=== PATIENT | female | born 1960 | race American Indian/Alaskan Native ===

== ENCOUNTER 2019-11-20 09:21 | Day surgery (SDC) | payer MEDICARE ==
[~2019-11-20 09:21] MED LIST: MIDAZOLAM 2 MG/2 ML INJ IV NR; SODIUM CHLORIDE 0.9% 1000 ML 1,000 ML IV SCH; ceFAZolin/Water 2 GM/20 ML 2 GM/20 ML SYRINGE IV NR
--- NOTE | 2019-11-20 10:44 | Anesthesia Day of Surgery ---
Anesthesia Day of Surgery - Day of Surgery Patient Examined: Yes Patient H&P Reviewed: Yes Patient is NPO: Yes
--- NOTE | 2019-11-20 10:44 | Anesthesia Consultation ---
Anesthesia Consult and Med Hx Date of service: 11/20/19 - Airway Anesthetic Teeth Evaluation: Poor ROM Head & Neck: Adequate Mental/Hyoid Distance: Adequate Mallampati Class: Class III Intubation Access Assessment: Possibly Difficult (uncuffed trach in place) - Pulmonary Exam CTA: Yes - Cardiac Exam Cardiac Exam: RRR - Pre-Operative Health Status ASA Pre-Surgery Classification: ASA3 Proposed Anesthetic Plan: MAC Nerve Block: supraclavicular - Pulmonary Hx Smoking: Yes (quit 1.5yrs ago) SOB: Yes (chronic; uses symbicort) Home Oxygen Therapy: No - Cardiovascular System Hx Hypertension: Yes Hx Heart Attack/AMI: No Hx Percutaneous Transluminal Coronary Angioplasty (PTCA): No Hx Cardia Arrhythmia: No Hx Peripheral Vascular Disease: Yes (took eliquis today) - Central Nervous System CVA: No Hx Psychiatric Problems: Yes (anxiety/depression/bipolar) - Gastrointestinal Hx Gastroesophageal Reflux Disease: Yes - Endocrine Hx End Stage Renal Disease: Yes (last HD 11/19/2019) Hx Liver Disease: No Hx Insulin Dependent Diabetes: Yes Hx Hypothyroidism: Yes - Other Systems Hx Obesity: No - Additional Comments Anesthesia Medical History Comments: No hx anesthetic complications.
[2019-11-20] MEDS ORDERED: BUPIVACAINE-EPINEPHRINE/PF 0.25%-1:200,000 (30 ML) VIAL INFILTRATI ONE (10:53)
[2019-11-20] MEDS ORDERED: ONDANSETRON 4 MG/2 ML INJ ONE (11:00)
[2019-11-20] MEDS ORDERED: HYDROmorphone 1 MG/1 ML INJ ONE (11:00)
[2019-11-20] MEDS ORDERED: propofoL 200 MG/20 ML VIAL IV ONE ×2 (11:00→14:26)
[2019-11-20] MEDS ORDERED: LIDOCAINE MPF (2%) 20 MG/1 ML VIAL 5 ML ONE (11:02)
[2019-11-20 11:09] LABS: Hemoglobin 10.8 gm/dl (10.1-14.3); Mean Corpuscular HGB Conc 31 % (30-34); Mean Corpuscular Volume 76 fl (79-97); Platelet Count 518 K/mm3 (140-440); Red Blood Count 4.58 M/mm3 (3.65-5.03)
[2019-11-20 11:10] LABS: Red Cell Distribution Width 21.8 % (13.2-15.2)
[2019-11-20 11:19] LABS: Calcium 9.3 mg/dL (8.4-10.2)
[2019-11-20] MEDS ORDERED: BUPIVACAINE/PF (0.5%) 5 MG/1 ML 30 ML VIAL INFILTRATI ONE (11:45)
[2019-11-20] MEDS ORDERED: LIDOCAINE (1%) 10 MG/1 ML VIAL 20 ML MDV ONE (11:45)
[2019-11-20] MEDS ORDERED: HEPARIN 10,000 UNITS/10 ML VIAL ONE (11:46)
[2019-11-20] MEDS ORDERED: SODIUM CHLORIDE 0.9% 500 ML 500 ML ONE (11:46)
[2019-11-20] MEDS ORDERED: PROTAMINE SULFATE 50 MG/5 ML INJ ONE (11:50)
[2019-11-20] MEDS ORDERED: SODIUM CHLORIDE 0.9% 250ML 250 ML ONE (12:50)
[2019-11-20] MEDS ORDERED: rifAMPin 600 MG VIAL ONE (12:50)
[2019-11-20] MEDS ORDERED: LIDOCAINE (1%) 10 MG/1 ML VIAL 20 ML MDV INFILTRATI ONE (12:56)
[2019-11-20] MEDS ORDERED: rifAMPin 600 MG VIAL IV ONE (12:57)
[2019-11-20] MEDS ORDERED: SODIUM CHLORIDE 0.9% IRR 1,500 ML BOTTLE IR ONE (12:58)
[2019-11-20] MEDS ORDERED: KETAMINE/STERILE WATER 50 MG/ML SYRINGE ONE (13:00)
[2019-11-20] MEDS ORDERED: HEPARIN 10,000 UNITS/10 ML VIAL IR ONE (13:01)
[2019-11-20] MEDS ORDERED: SODIUM CHLORIDE 0.9% 500 ML IVPB IRRIGATION ONE (13:02)
--- NOTE | 2019-11-20 14:39 | Short Stay Summary ---
Short Stay Documentation Date of service: 11/20/19 Narrative H&P: See H&P - History H&P: obtained from office - Allergies and Medications Current Medications: Allergies No Known Allergies Allergy (Verified 11/11/19 10:21) Home Medications Medication Instructions Recorded Confirmed Last Taken Type Insulin Glargine [Lantus VIAL] 30 units SQ HS PRN 09/19/15 11/13/19 11/07/19 History 30 units Levothyroxine [Synthroid] 50 mcg PO QAM 09/19/15 11/13/19 11/12/19 History 50 mcg Apixaban [Eliquis] 5 mg PO DAILY 11/11/19 11/13/19 11/12/19 History 5 mg Atorvastatin (Nf) [Lipitor] 10 mg PO QHS 11/11/19 11/13/19 11/12/19 History 10 mg Clopidogrel [Plavix] 75 mg PO QDAY #90 tablet 11/11/19 11/13/19 11/12/19 Rx 75 mg Oxycodone HCl/Acetaminophen 1 each PO Q6HR PRN #30 tablet 11/11/19 11/13/19 11/12/19 Rx [Percocet 7.5/325 mg] 1 tab carvediloL [Coreg] 12.5 mg PO BID 11/11/19 11/13/19 11/11/19 History 12.5mg C-1000 1 cap PO DAILY 11/18/19 11/18/19 Unknown History Eye Drops drops OD 11/18/19 Unknown History Humalog 100 UNITS/ML Kwikpen 11/18/19 Unknown History Active Medications Cefazolin Sodium (Ancef/Sterile Water 2 Gm/20 Ml) 2 gm in 20 mls @ 80 mls/hr IV PREOP NR; Protocol Stop: 11/20/19 23:59 Sodium Chloride (Nacl 0.9% 1000 Ml) 1,000 mls @ 42 mls/hr IV DIRECT AZAEL Stop: 11/20/19 23:59 Midazolam HCl (Versed) 2 mg IV PREOP NR Stop: 11/20/19 23:59 - Brief post op/procedure progress note Date of procedure: 11/20/19 Pre-op diagnosis: Complications of Dialysis Access Post-op diagnosis: same Procedure: Revision of Left Brachial Artery to Axillary Vein Arteriovenous Graft with Pro ximal Mobilization with 6 mm Bovine Artegraft Anesthesia: MAC, regional Surgeon: XENIA CURRIE Estimated blood loss: 50-100ml Pathology: none Condition: stable - Disposition Condition at discharge: Good Disposition: DC/[place]-03 [facility] Short Stay Discharge Plan Activity: other (No heavy lifting with left arm. Okay to continue using left arm for dialysis access.) Wound: open to air, keep clean and dry, other (Okay to wash the wounds with soap and water but do not soak in water for 2 weeks.) Follow up with: XENIA CURRIE MD [Staff Physician] - 14 Days Prescriptions: Oxycodone HCl/Acetaminophen [Percocet 7.5/325 mg] 1 each PO Q6HR PRN #40 tablet PRN Reason: Pain
--- NOTE | 2019-11-20 14:40 | Operative Report ---
Operative Report Operative Report: Date of Procedure: 11/20/2019 Pre-operative Diagnosis: Complications of Dialysis Access Post-operative Diagnosis: Same Procedure(s): 1. Revision of Left Brachial Artery to Axillary Vein Arteriovenous Graft with Proximal Mobilization with 6 mm Bovine Artegraft Surgeon: Jayson Mckeon M.D. Medical Office Assistant Instructor: None Anesthesia: Regional/MAC EBL: 100 mL Counts: Correct Complications: None Condition: Stable Findings: Successful revision of left arm arteriovenous graft with palpable thrill in the graft and palpable radial pulse at the completion of the case. Specimen: None Indication: The patient is a 59-year-old female with a history of end-stage renal disease who is on hemodialysis through a left arm brachial artery to axillary vein arteriovenous graft. She has complaints of left hand numbness and inability to hot dip galvanizer objects. She had a diagnostic left upper extremity arteriogram performed there revealed angiographic evidence of steal syndrome. She is in need of revision of the graft to improve the flow to her hand. She was given the risk, benefits, and alternative procedures and consented to the procedure. Description of Procedure: Prior to being brought to the operating room the patient had a regional block of her left arm performed in the preoperative area. After this was performed the patient was transported to the operating room and was adequately sedated. After adequate sedation was achieved her left arm was prepped and draped in normal sterile fashion. A longitudinal incision was created on the medial aspect of the arm just proximal to the antecubital crease and carried down to the brachial artery anastomosis by sharp dissection. The brachial artery was dissected circumferentially both proximal and distal to the anastomosis and controlled with Vesseloops. I then made a longitudinal incision on the medial aspect of the arm to the axilla and carried this down to the axillary artery by sharp dissection. The axillary artery was dissected circumferentially and controlled with Vesseloops. I then used a 6 mm bovine Artegraft that was soaked in rifampin and tunneled it from the brachial artery incision to the axillary artery incision. I systemically heparinized the patient with 3000 units of heparin IV and then used angled DeBakey clamps to clamp the axillary artery. I made an arteriotomy using an 11 blade and Alvarez scissors and then created an end-to-side anastomosis between the bovine Artegraft using a 6-0 Prolene in running fashion. After creating the anastomosis I clamped the distal end of the graft and released the clamps on the axillary artery allowing flow into the graft. Hemostasis at the anastomosis was achieved with quick clot. I then used angled DeBakey clamps to clamp the brachial artery both proximal and distal to the anastomosis of the previous graft and then dissected the graft towards the venous outflow and clamped the graft. I transected the graft leaving approximately 1 cm of cuff on the brachial artery and then close the arteriotomy using the cuff as a patch with 6-0 Prolene in running fashion. Prior to completing the closure I flashed the inflow and outflow of the brachial artery and then completed the closure. Hemostasis on the arteriotomy closure was achieved with 6-0 Prolene in interrupted fashion. Once hemostasis was achieved I beveled the remaining end of the graft and then cut the 6 mm bovine graft to length and beveled that and and then created an end-to-end anastomosis between the bovine graft and the pre-existing graft using two 6-0 Prolene's in running fashion. Prior to completing the anastomosis I flashed both grafts and then reclamped them. I flushed the graft with heparinized saline and then completed the closure and released all clamps allowing flow into the graft which had a palpable thrill as well as a palpable pulse in the radial artery. Hemostasis within the brachial artery wound was achieved with quick clot and Anyi. Once hemostasis was achieved both wounds were closed in 2 layers using a 3-0 Vicryl in running fashion in the deep dermal layer and a 4-0 Monocryl in a running fashion the subcuticular layer and then dressed with Dermabond. The patient tolerated the procedure well. All sponge, needle, and instrument counts were correct. The patient was taken to the recovery area in stable condition.
[2019-11-20] MEDS: fentaNYL 100 MCG/2 ML INJ IV PRN ×2 (14:49→15:00)
[2019-11-20] MEDS ORDERED: fentaNYL 100 MCG/2 ML INJ ONE (14:49)
[2019-11-20] MEDS ORDERED: ONDANSETRON 4 MG/2 ML INJ IV PRN (15:26)
--- NOTE | 2019-11-20 15:57 | Post Anesthesia Evaluation ---
- Post Anesthesia Evaluation Patient Participated: Yes Airway Patent: Yes Stable Respiratory Function: Yes Nausea/Vomiting: No Temp > 96.8F: Yes Pain Manageable: Yes Adequeate Hydration: Yes Anesthesia Complications: No
[2019-11-20 17:48] VITALS: BP 168/87
== END 2019-11-20 17:09 ==
LOC: OR 09:21
PROVIDERS: ATTEND Surgery Vascular Surgery
DX: I12.0 Hypertensive chronic kidney disease with stage 5 chronic kidney disease or end stage renal disease (principal); E11.22 Type 2 diabetes mellitus with diabetic chronic kidney disease; N18.6 End stage renal disease; E11.51 Type 2 diabetes mellitus with diabetic peripheral angiopathy without gangrene; E11.39 Type 2 diabetes mellitus with other diabetic ophthalmic complication; E03.9 Hypothyroidism, unspecified; E78.00 Pure hypercholesterolemia, unspecified; K21.9 Gastro-esophageal reflux disease without esophagitis; F41.9 Anxiety disorder, unspecified; F31.9 Bipolar disorder, unspecified; M19.90 Unspecified osteoarthritis, unspecified site; H40.9 Unspecified glaucoma; Z90.710 Acquired absence of both cervix and uterus; Z99.2 Dependence on renal dialysis; Z79.899 Other long term (current) drug therapy; Z79.4 Long term (current) use of insulin; Z87.891 Personal history of nicotine dependence; Z80.0 Family history of malignant neoplasm of digestive organs; Z87.440 Personal history of urinary (tract) infections; Z98.890 Other specified postprocedural states; Z86.2 Personal history of diseases of the blood and blood-forming organs and certain disorders involving the immune mechanism
CPT/HCPCS: 36415; 36832; 80048; 82962; 85027; C1768; J0690; J1170; J1644; J2250; J2405; J2704; J3010; J3490; J7030; J7040; J7050; 64450; J2720

== ENCOUNTER 2019-12-08 11:23 | Day surgery (SDC) | payer MEDICARE ==
[2019-12-08] MEDS ORDERED: oxyCODONE /ACETAMINOPHEN 5-325MG TAB PO ONE (12:49)
[2019-12-08] MEDS ORDERED: MIDAZOLAM 2 MG/2 ML INJ ONE (14:01)
[2019-12-08] MEDS ORDERED: fentaNYL 100 MCG/2 ML INJ ONE (14:01)
[2019-12-08] MEDS ORDERED: LIDOCAINE (2%) 20 MG/1 ML VIAL 20 ML MDV INFILTRATI ONE (14:02)
[2019-12-08] MEDS ORDERED: SODIUM CHLORIDE 0.9% 250ML 250 ML ONE (14:02)
[2019-12-08] MEDS ORDERED: HEPARIN 10,000 UNITS/10 ML VIAL ONE (14:02)
[2019-12-08] MEDS ORDERED: HEPARIN/NS 5000 UNIT/500ML 1,000 ML IR ONE (14:02)
--- NOTE | 2019-12-08 14:32 | Short Stay Summary ---
Short Stay Documentation Date of service: 12/08/19 Narrative H&P: See Short Stay Record - Allergies and Medications Current Medications: Allergies No Known Allergies Allergy (Verified 11/11/19 10:21) Home Medications Medication Instructions Recorded Confirmed Last Taken Type Insulin Glargine [Lantus VIAL] 30 units SQ HS PRN 09/19/15 12/08/19 12/07/19 History 15 units Levothyroxine [Synthroid] 50 mcg PO QAM 09/19/15 12/08/19 12/07/19 History 50 mcg Apixaban [Eliquis] 5 mg PO DAILY 11/11/19 12/08/19 12/07/19 History 5 mg Atorvastatin (Nf) [Lipitor] 10 mg PO QHS 11/11/19 12/08/19 12/07/19 History 10 mg Clopidogrel [Plavix] 75 mg PO QDAY #90 tablet 11/11/19 12/08/19 12/07/19 Rx 75 mg carvediloL [Coreg] 12.5 mg PO BID 11/11/19 12/08/19 12/07/19 History 12.5mg C-1000 1 cap PO DAILY 11/18/19 12/08/19 12/07/19 History 1 Eye Drops 1 drops OD DAILY 11/18/19 12/08/19 12/07/19 History 1 Humalog 100 UNITS/ML Kwikpen 7 units SC DAILY PRN 11/18/19 12/08/19 12/04/19 History 7 Oxycodone HCl/Acetaminophen 1 each PO Q6HR PRN #40 tablet 11/20/19 12/08/19 12/07/19 Rx [Percocet 7.5/325 mg] 1 - Brief post op/procedure progress note Date of procedure: 12/08/19 Pre-op diagnosis: Complications of Dialysis Access Post-op diagnosis: same Procedure: 1. Access Left Arm AV Graft with 7 [place] Sheath Venous 2. Diagnostic Fistulogram with Central Venogram 3. Access Left Arm AV Graft with 7 [place]istan[place] Sheath Arterial 4. Catheter in Left Axillary Artery 5. Diagnostic Left Upper Extremity Arteriogram 6. Angioplasty of Left Axillary Artery with 7 x 80 IN.PACT Drug-Coated Balloon 7. Monitored Moderate Sedation (Total Anesthesia Time: 33 Minutes) 8. Radiologic Supervision with Interpretation Anesthesia: local, other (Monitored Moderate Sedation) Surgeon: XENIA CURRIE Estimated blood loss: minimal Pathology: none Condition: stable - Disposition Condition at discharge: Good Disposition: DC-01 TO HOME OR [facility] Short Stay Discharge Plan Activity: other (Okay to use the graft and dialysis during the next session.) Wound: remove dressing (During dialysis at the next session. Please remove the suture by pulling the longer of the 2 strings at dialysis during the next session.) Follow up with: JERO CARRANZA MD [Primary Care Provider] - 7 Days Forms: AVG Arteriogram D/CInstruction Prescriptions: Oxycodone HCl/Acetaminophen [Percocet 7.5/325 mg] 1 each PO Q6HR PRN #10 tablet PRN Reason: Pain
--- NOTE | 2019-12-08 14:34 | Operative Report ---
Operative Report Operative Report: Date of Procedure: 12/08/2019 Pre-operative Diagnosis: Complications of Dialysis Access Post-operative Diagnosis: Same Procedure(s): 1. Access Left Arm AV Graft with 7 [place] Sheath Venous 2. Diagnostic Fistulogram with Central Venogram 3. Access Left Arm AV Graft with 7 [place] Sheath Arterial 4. Catheter in Left Axillary Artery 5. Diagnostic Left Upper Extremity Arteriogram 6. Angioplasty of Left Axillary Artery with 7 x 80 IN.PACT Drug-Coated Balloon 7. Radiologic Supervision with Interpretation Surgeon: Jayson Mckeon M.D. Funeral Home Associate: None Anesthesia: Local/Monitored Moderate Sedation Monitored Moderate Sedation (Total Anesthesia Time: 33 Minutes) EBL: Minimal Counts: Correct Complications: None Condition: Stable Specimen: None Indication: The patient is a 59-year-old female with a history of end-stage renal disease who is on hemodialysis through a left arm arteriovenous graft. She had complaints of left arm numbness and had revision with proximalization incision of the arterial inflow. She presents with complaints of increased swelling at the incisions as well as bleeding. She is in need of a diagnostic fistulogram with possible intervention. She was given the risk, benefits, and alternative procedures and consented to the procedure. Angiographic Findings: The diagnostic fistulogram revealed that the venous outflow of the graft was patent without any evidence of flow-limiting stenosis. There was approximately 20% stenosis of the subclavian vein however this was not flow-limiting. The remainder of the central venous system was patent without evidence of flow- limiting stenosis. The remainder of the fistulogram revealed that the recently created arterial inflow of the graft was patent without evidence of flow- limiting stenosis or pseudoaneurysm formation. The arterial anastomosis was widely patent without evidence of flow-limiting stenosis. The axillary artery was tortuous. The proximal axillary artery was patent without significant flow- limiting stenosis. Distal to the anastomosis there was approximately 50% stenosis over a long segment and a short segment of the artery had an 85% stenosis. The remainder of the axillary artery and the brachial artery were patent without evidence of flow-limiting stenosis. After intervention the axill jose luis artery was patent with less than 10% residual stenosis. Description of Procedure: The patient was brought to the Staple Cutter and laid in supine position. After timeout was performed she was sedated and her left arm was prepped and draped in normal sterile fashion. Lidocaine was used to anesthetize the skin overlying the graft near the antecubital crease and a 21-gauge micropuncture needle was used access the graft towards the venous outflow. A 0.018 micropuncture wire was advanced into the graft and after removing the needle a 7 [place]i sheath was placed by Seldinger technique. A diagnostic fistulogram with central venogram was performed with the previously described findings. Lidocaine was used to anesthetize the skin overlying soft tissue near the venous outflow of the graft and a 21-gauge micropuncture needle was used to access the graft towards the arterial inflow. A 0.018 micropuncture wire was advanced to the graft and after removing the needle a 6 [place]i sheath was placed by Seldinger technique. A 0.035 J-wire and vertebral catheter were advanced into the proximal axillary artery and the diagnostic left upper extremity arteriogram was performed with the previously described findings. I used a 0.035 floppy Glidewire and advanced this into the axillary artery and eventually the brachial artery distal to the anastomosis and advanced the catheter into the brachial artery. I exchanged the Glidewire for a 0.035 Bentson wire and then exchanged the 6 [place]i sheath for a 7 [place] sheath and performed angioplasty of the areas of stenosis using a 7 x 80 IN.PACT Drug-Coated Balloon. This resulted in less than 10% residual stenosis. At that point I removed the balloon and wire and used 2-0 Ethilon in slipknot fashion to close each entry site after removing the sheaths. Sterile dressings were then applied to the entry sites and the patient was transported to the recovery area in stable condition.
[2019-12-08 16:18] VITALS: BP 199/91
== END 2019-12-08 17:19 | disposition home or self-care (01) ==
LOC: CATHLABREC 11:23
PROVIDERS: ATTEND Surgery Vascular Surgery
DX: T82.898A Other specified complication of vascular prosthetic devices, implants and grafts, initial encounter (principal); I12.0 Hypertensive chronic kidney disease with stage 5 chronic kidney disease or end stage renal disease; N18.6 End stage renal disease; E11.22 Type 2 diabetes mellitus with diabetic chronic kidney disease; M19.90 Unspecified osteoarthritis, unspecified site; E11.51 Type 2 diabetes mellitus with diabetic peripheral angiopathy without gangrene; F31.9 Bipolar disorder, unspecified; F41.9 Anxiety disorder, unspecified; F17.210 Nicotine dependence, cigarettes, uncomplicated; H40.9 Unspecified glaucoma; E03.9 Hypothyroidism, unspecified; E78.00 Pure hypercholesterolemia, unspecified; K21.9 Gastro-esophageal reflux disease without esophagitis; Z80.0 Family history of malignant neoplasm of digestive organs; Z79.899 Other long term (current) drug therapy; Z79.4 Long term (current) use of insulin; Z98.42 Cataract extraction status, left eye; Z98.41 Cataract extraction status, right eye; Z98.890 Other specified postprocedural states; Z90.710 Acquired absence of both cervix and uterus; Z83.3 Family history of diabetes mellitus; Z87.440 Personal history of urinary (tract) infections; Z86.2 Personal history of diseases of the blood and blood-forming organs and certain disorders involving the immune mechanism; Z82.49 Family history of ischemic heart disease and other diseases of the circulatory system; Y83.8 Other surgical procedures as the cause of abnormal reaction of the patient, or of later complication, without mention of misadventure at the time of the procedure; Y92.89 Other specified places as the place of occurrence of the external cause
CPT/HCPCS: 36415; 36902; 84132; 99156; 99157; C1769; C1894; C2623; J1644; J2250; J3010; J7050; Q9967